=== PATIENT | female | born 1945 | race Caucasian/White ===

== ENCOUNTER 2025-02-10 11:05 | Emergency (ER) | payer OTHER, SELFPAY ==
[2025-02-10 11:14] VITALS: BP 150/67; PULSE 60; RESP 18; TEMP 36.9; O2SAT 96; BMI 21.9
--- NOTE | 2025-02-10 11:29 | ED_ITS ---
<Statement entered by Vijay Waller, - 02/10/25 18:05> Co-sign statement: I was available for consultation during this patient's emergency department visit. This chart is being signed by myself for administrative purposes only. I do not have direct contact with this patient during this visit. They were seen independently by the APC. HPI - Wound/Laceration General Chief Complaint: Wound/Laceration Stated Complaint: Fell has hole Lower right leg Time Seen by Provider: 02/10/25 11:18 Source: patient Mode of arrival: Ambulatory History of Present Illness HPI narrative: 79-year-old female with past medical history hyper lipidemia, GERD presents to the ED with a 1-day-old laceration to the right sutherland. Patient states that she accidentally bumped her sutherland against the handle of the recliner, which caused a laceration. Bleeding has been controlled with pressure. Patient complains of pain at the site of the laceration. Denies numbness, tingling, weakness. Patient is able to bear weight and walk. Last tetanus is unknown. Related Data Allergies Allergy/AdvReac Type Severity Reaction Status Date / Time Penicillins Allergy Rash Verified 02/10/25 11:18 vasoconstrictors AdvReac Mild Uncoded 02/10/25 11:25 Review of Systems Constitutional Constitutional: Denies chills, Denies fatigue, Denies fever(s), Denies frequent falls, Denies lethargy and Denies weakness Eyes Eyes: Denies change in vision, Denies eye discharge, Denies irritation and Denies loss of vision ENT Ears, Nose, Mouth, and Throat: Denies change in voice, Denies dizziness, Denies neck pain, Denies sore throat and Denies throat swelling Cardiovascular Cardiovascular: Denies chest pain, Denies irregular heart rhythm, Denies lightheadedness, Denies palpitations, Denies dyspnea, Denies dyspnea on exertion and Denies orthopnea Respiratory Respiratory: Denies cough, Denies dyspnea, Denies dyspnea on exertion and Denies wheezing Gastrointestinal Gastrointestinal: Denies abdominal pain, Denies change in bowel habits, Denies d iarrhea, Denies nausea and Denies vomiting Musculoskeletal Musculoskeletal: Denies neck pain and Denies numbness Integumentary/Breasts Skin/Breast: Denies pruritus, Denies erythema, Denies rash and Reports wounds Comments: Right sutherland laceration, pain Neurologic Neurologic: Denies behavioral changes, Denies confusion, Denies dizziness, Denies frequent falls, Denies loss of vision, Denies numbness and Denies weakness Psychiatric Psychiatric: Denies anxiety, Denies behavioral changes, Denies confusion, Denies depression, Denies homicidal ideation and Denies suicidal ideation Endocrine Endocrine: Denies fatigue, Denies flushing and Denies palpitations Hematologic/Lymphatic Hematologic/Lymphatic: Denies easy bruising Allergic/Immunologic Allergic/Immunologic: Denies urticaria, Denies throat swelling and Denies wheezing Patient History Social History Smoking Status: Never smoker Smoking Status: Never smoker Alcohol type: wine Exam Narrative Exam Narrative: Const General:?cooperative, healthy appearing and comfortable [facility] Head:?normal to inspection Ears:?hearing grossly normal bilaterally Nose:?external nose normal Face and sinus:?normal facial exam and sinuses nontender Mouth:?oral mucosae normal Throat:?posterior oropharynx normal Eyes General:?appearance normal, both eyes and all related structures Neck Neck:?normal visual inspection and no lymphadenopathy noted Resp Effort & Inspection:?normal respiratory effort Auscultation:?clear to auscultation bilaterally Cardio Rate:?regular rate Rhythm:?regular rhythm Integumentary 7 cm curved laceration to the right sutherland. Bleeding is controlled with pressure. No deeper structures visualized on exam. Neurovascularly intact. Patient is able to bear weight and walk. Neuro General:?patient alert, patient awake and patient oriented x3 Initial Vital Signs Initial Vital Signs: Vital Signs Temperature 98.5 F 02/10/25 11:14 Pulse Rate 60 02/10/25 11:14 Respiratory Rate 18 02/10/25 11:14 Blood Pressure 150/67 H 02/10/25 11:14 Pulse Oximetry 96 02/10/25 11:14 Oxygen Delivery Method Room Air 02/10/25 11:14 Procedures Laceration Repair Laceration 1: Site: lower extremity Side (If applicable): right Size (cm): 7 Description: linear and clean Depth: simple, single layer Local Anesthetic: lidocaine 2% Amount of anesthesia used (mL): 4 Pre-repair: wound explored, irrigated extensively, deep structures intact and cleansed with chlorhexadine Skin layer closed with: nylon Skin layer suture size: 4-0 and 5-0 Number of sutures: 11 Technique: simple, interrupted Course Orders Ordered: Discontinued Medications Diphtheria/Tetanus/Acell Pertussis (Tet,Diph,Pertuss(Acell),Vac/Pf 0.5 Ml Syringe) 0.5 ml IM .ONCE ONE Stop: 02/10/25 11:45 Last Admin: 02/10/25 12:04 Dose: 0.5 ml Documented By: PHILIP Lidocaine HCl (Lidocaine 2% Inj Sdv 5ml) 2 ml INJ NOW ONE Stop: 02/10/25 11:43 Last Admin: 02/10/25 11:44 Dose: 2 ml Documented By: JAEL Lidocaine HCl (Lidocaine 2% Inj Mdv 20ml) 10 ml INJ INTRA-OP ONE Stop: 02/10/25 12:27 Last Admin: 02/10/25 12:32 Dose: 10 ml Documented By: PHILIP Lidocaine HCl (Lidocaine 2% Inj Sdv 5ml) 5 ml INJ NOW ONE Stop: 02/10/25 12:28 Last Admin: 02/10/25 12:32 Dose: Not Given Documented By: PHILIP Vital Signs Vital signs: Vital Signs - 8 hr 02/10/25 11:14 02/10/25 13:09 Temperature 98.5 F 97.1 F L Pulse Rate 60 87 Respiratory Rate 18 16 Blood Pressure 150/67 H 157/68 H Pulse Oximetry 96 96 Oxygen Delivery Method Room Air Room Air MDM - Wound/Laceration MDM Narrative Medical decision making narrative: 79-year-old female with past medical history hyper lipidemia, GERD presents to the ED with a 1-day-old laceration to the right sutherland. Physical exam is consistent with a laceration to the right sutherland, with no deeper structures visualized. No concern for fracture/dislocation, no indication for imaging at this time. Laceration was numbed, cleaned, repaired with sutures. Tetanus was updated. Wound care instructions, suture removal discussed with patient. ED return precautions were discussed with patient. Patient verbalized understanding. Medical records reviewed: Yes Discharge Plan Departure Patient Disposition: Home Clinical Impression: Laceration Instructions: DI for Laceration Repair Activity Restrictions/Additional Instructions: You were evaluated in the ED today for a sutherland laceration. Your laceration was repaired with sutures. You were also given a tetanus update which is good for the next 10 years. The sutures will need to be removed in 7-10 days. You may return to the ED or go to a walk-in clinic for suture removal. Please monitor your wound for signs of infection including worsening redness, pain, swelling, warmth, discharge. Return to the ED if you note any signs of infection. Stand Alone Forms: Patient Portal/API
[2025-02-10] MEDS: LIDOCAINE 2% INJ SDV 5ML 2 ML INJ (11:44)
[2025-02-10] MEDS: TET,DIPH,PERTUSS(ACELL),VAC/PF 0.5 ML SYRINGE IM (12:04)
[2025-02-10] MEDS: LIDOCAINE 2% INJ MDV 20ML 10 ML INJ (12:32)
[2025-02-10 13:09] VITALS: BP 157/68; PULSE 87; RESP 16; TEMP 36.2; O2SAT 96
== END 2025-02-10 13:11 | disposition home or self-care (01) ==
PROVIDERS: Emergency Provider Student in an Organized Health Care Education/Training Program
DX: S81.811A Laceration without foreign body, right lower leg, initial encounter (principal); W22.03XA Walked into furniture, initial encounter; Z23 Encounter for immunization
CPT/HCPCS: 12002; 90471; 99284; 90715

== ENCOUNTER 2025-02-19 13:19 | Emergency (ER) | payer OTHER, SELFPAY ==
[2025-02-19 13:42] VITALS: BP 135/62; PULSE 52; RESP 13; TEMP 36.7; O2SAT 100; BMI 21.9
--- NOTE | 2025-02-19 14:06 | ED_ITS ---
<Statement entered by Duglas Quintanilla, - 02/20/25 01:26> Dr. Quintanilla: I was immediately available in the department for consultation. I did not actually see the patient. HPI - Recheck/Abnormal Lab/Rx General Chief Complaint: Recheck/Abnormal Lab/Rx Stated Complaint: needs stitches out , But still bleeding and open Time Seen by Provider: 02/19/25 14:06 Source: patient Mode of arrival: Ambulatory History of Present Illness HPI narrative: Ms. Angel is a pleasant 79-year-old female who presents to the emergency department for suture removal. On 02/10/2025 patient was seen in the emergency department for a 7 cm laceration to the right anterior sutherland that she sustained after hitting it on a recliner. Eleven simple interrupted sutures were placed and she was advised to have them removed in 7-10 days. Patient has been keeping the wound clean and covered with a dressing. She is here today for suture removal, day 9, however she reports that the wound is occasionally still weeping and having some bleeding at the base and it is not entirely healed yet. The laceration was flap-like in nature and she does have some scabbing of the flap. She otherwise has been feeling well, has no streaking redness, no fevers, chills, nausea vomiting or other concerns. She is here with her . Related Data Previous Rx's ?Medication ?Instructions ?Recorded cephalexin 500 mg capsule 500 mg PO TID 7 days #21 cap s 02/19/25 Allergies Allergy/AdvReac Type Severity Reaction Status Date / Time Penicillins Allergy Rash Verified 02/19/25 13:42 vasoconstrictors AdvReac Mild Uncoded 02/19/25 13:42 Review of Systems Review of Systems ROS Unobtainable: All systems reviewed & are unremarkable except as noted in HPI and below Patient History Social History Smoking Status: Unknown if ever smoked Smoking Status: Unknown if ever smoked Alcohol type: wine Exam Narrative Exam Narrative: GENERAL: 79 year old patient appears stated age. Well-developed patient, in no acute distress. HEAD: Atraumatic. Normocephalic. CARDIOVASCULAR: Regular rate RESPIRATORY: ?Nonlabored respirations. ?Speaking in clear, full sentences. EXTREMITIES: Right anterior sutherland with 7 cm curved/flap laceration with the 11 simple interrupted sutures in place. Patient does have scabbing/necrosis of the distal wound flap and slight erythema around the wound margins. No purulent drainage, fluctuance or edema. NEURO: AOx3. ?Clear speech. ?Moves all 4 extremities appropriately. SKIN: Warm, dry. No rashes. No streaking erythema. Right anterior sutherland wound described above. Initial Vital Signs Initial Vital Signs: Vital Signs Temperature 98.1 F 02/19/25 13:42 Pulse Rate 52 L 02/19/25 13:42 Respiratory Rate 13 02/19/25 13:42 Blood Pressure 135/62 02/19/25 13:42 Pulse Oximetry 100 02/19/25 13:42 Oxygen Delivery Method Room Air 02/19/25 13:42 [place] [facility] [place] Name [place] Procedure: Suture Removal Side (if applicable): right Location: RLE. Technique/Description of procedure performed: 11 simple interrupted sutures removed. No dehiscence of wound. Course Orders Ordered: Discontinued Medications Bacitracin (Bacitracin Oint 0.9 Gm Pckt) 1 applic TOP NOW ONE Stop: 02/19/25 15:22 Last Admin: 02/19/25 15:32 Dose: 1 applic Documented By: SEDRICK Cephalexin HCl (Cephalexin 250 Mg Capsule) 500 mg PO NOW ONE Stop: 02/19/25 15:22 Last Admin: 02/19/25 15:32 Dose: 500 mg Documented By: SEDRICK Vital Signs Vital signs: Vital Signs - 8 hr 02/19/25 13:42 02/19/25 16:04 Temperature 98.1 F Pulse Rate 52 L 55 L Respiratory Rate 13 14 Blood Pressure 135/62 131/61 Pulse Oximetry 100 99 Oxygen Delivery Method Room Air Room Air MDM - Recheck/Abnormal Lab/Rx Medical Records Attestation: I reviewed the patient's medical records. [facility] Narrative Medical decision making narrative: 79-year-old female who presents to the emergency department for suture removal. On 02/10/2025 patient was seen in the emergency department for a 7 cm laceration to the right anterior sutherland that she sustained after hitting it on a recliner. Differential diagnosis includes but isn't limited to suture removal, wound dehiscence, wound infection, etc. On exam patient is in no acute distress, nontoxic appearing, vital signs appropriate. She has a right anterior sutherland wound, she would like the sutures removed, wound is not yet entirely healed. Discussed benefits and risks of suture removal now versus waiting an additional 4-5 days. After shared decision-making with the patient, we will proceed with suture removal. We will treat patient with Keflex t.i.d. x7 days, wound does not appear overly infected at this time but there is mild erythema and because we removing the sutures but early it will need to heal by secondary intention. Sutures removed easily, wound was cleansed with diluted Betadine. First dose of Keflex given in the ED. Bacitracin and a pressure dressing was applied to the wound. There was no dehiscence however it is not entirely healed especially at the base. Discussed proper wound care, signs and symptoms to return to the ED and follow up with PCP. Patient verbalized understanding of all information is agreeable with the plan. She is ambulatory and stable for discharge home. Discharge Plan Departure Patient Disposition: Home Clinical Impression: Encounter for removal of sutures Laceration of right lower leg Qualifiers: Encounter type: subsequent encounter Qualified Code(s): S81.811D - Laceration without foreign body, right lower leg, subsequent encounter Instructions: DI for Suture Removal Activity Restrictions/Additional Instructions: Dear Clive Angel, Thank you for coming to the emergency department. Today you had 11 sutures removed from your right lower leg. The wound is still open and healing, so I would like you to apply a pressure dressing once daily. Keep the wound clean, dry, and covered with ointment and a dressing. Do not soak the wound in any water such as bath, ocean, [place], pool, etc. Complete the full course of antibiotics. Please return to the emergency department you develop any new or worsening symptoms, fevers, redness spreading up the leg or other concerns. Antibiotics have been sent to [facility]. Please follow up with your primary care doctor within the next 2-3 days for ER follow-up. (If you do not have a PCP you can call [phone]. ?to schedule an appointment with an [facility] Primary Care Provider) IF YOU DEVELOP ANY NEW OR WORSENING SYMPTOMS, RETURN TO THE ER! Please read the attached instructions, they highlight more specific treatments and interventions for you at home. Thank you for letting me participate in your care, Dana Diez PA-C Prescriptions: New cephalexin 500 mg capsule 500 mg PO TID 7 Days Qty: 21 0RF Stand Alone Forms: Patient Portal/API
[2025-02-19] MEDS: BACITRACIN OINT 0.9 GM PCKT 1 APPLIC TOP (15:32)
[2025-02-19 16:04] VITALS: BP 131/61; PULSE 55; RESP 14; O2SAT 99
== END 2025-02-19 16:05 | disposition home or self-care (01) ==
PROVIDERS: Emergency Provider Physician Assistant
DX: Z48.02 Encounter for removal of sutures (principal)
CPT/HCPCS: 99283

== ENCOUNTER → 2025-04-20 13:28 | Outpatient (CLI) | payer OTHER, SELFPAY | PROVIDERS: Visit Provider Chiropractor | DX: R30.0 Dysuria (principal) | CPT/HCPCS: 87077; 87086; 87186 ==